=== PATIENT | female | born 1955 | race Caucasian/White ===

== ENCOUNTER 2017-01-10 16:12 | Outpatient (CLI) | payer MEDICAID ==
--- NOTE | 2017-01-11 11:17 | XRAY Report ---
TWO VIEW CHEST: 01/10/2017 CLINICAL INDICATION: Rhonchi, cough, smoking history. FINDINGS: Frontal and lateral views of the chest demonstrate a normal cardiac silhouette. The lungs are clear. No effusion or pneumothorax is present. IMPRESSION: NORMAL CHEST. JOB #: [id number] EXT JOB #:[id number]
== END 2017-01-10 16:13 | disposition home or self-care (01) ==
LOC: DI 16:12
PROVIDERS: ATTEND Physician Assistant
DX: R09.89 Other specified symptoms and signs involving the circulatory and respiratory systems (principal); Z87.891 Personal history of nicotine dependence
CPT/HCPCS: 71020

== ENCOUNTER 2017-02-15 07:37 | Outpatient (CLI) | payer MEDICAID ==
[2017-02-15 13:35] LABS: BASOPHILS # (AUTO) 0.1 10^3/uL (0.0-0.1); BASOPHILS % (AUTO) 1.2 %; EOSINOPHILS % (AUTO) 0.2 %; HCT - HEMATOCRIT 38.8 % (37.0-47.0); HGB - HEMOGLOBIN 13.1 g/dL (12.0-16.0); LYMPHOCYTES % (AUTO) 34.5 %; MEAN CORPUSCULAR HEMOGLOBIN 33.1 pg (27.0-31.0); MEAN CORPUSCULAR HGB CONC 33.9 g/dL (32.0-36.0); MEAN CORPUSCULAR VOLUME 97.7 fL (81.0-99.0); MEAN PLATELET VOLUME 10.7 fL (7.9-10.8); MONOCYTES # (AUTO) 0.6 10^3/uL (0.0-1.0); MONOCYTES % (AUTO) 7.3 %; NEUTROPHILS % (AUTO) 56.8 %; RED BLOOD COUNT 3.97 10^6/uL (4.20-5.40); RED CELL DISTRIBUTION WIDTH 13.3 % (12.0-15.0); UNCORRECTED WHITE BLOOD COUNT 8.8 x10^3/uL; WHITE BLOOD COUNT 8.8 x10^3/uL (4.8-10.8)
[2017-02-15 13:42] LABS: ALBUMIN/GLOBULIN RATIO 1.2 (1.0-2.2); BILIRUBIN,TOTAL 0.5 mg/dL (0.2-1.0); BUN - BLOOD UREA NITROGEN 25 mg/dL (6-20); CALCIUM 9.3 mg/dL (8.5-10.3); CARBON DIOXIDE - CO2 24 mmol/L (21-32); CHLORIDE 105 mmol/L (101-111); CHOL/HDL RATIO 3.6 (<4.4); CHOLESTEROL 239 mg/dL; GFR - MDRD 56 (>89); GLUCOSE 174 mg/dL (70-100); HDL CHOLESTEROL 66 mg/dL; POTASSIUM 4.5 mmol/L (3.5-5.0); SODIUM 137 mmol/L (135-145); TOTAL PROTEIN 7.4 g/dL (6.7-8.2); TRIGLYCERIDES 190 mg/dL; VLDL CHOLESTEROL 38 mg/dL
== END 2017-02-15 07:38 | disposition home or self-care (01) ==
LOC: LAB.N 07:37
PROVIDERS: ATTEND Physician Assistant
DX: E78.5 Hyperlipidemia, unspecified (principal); E11.9 Type 2 diabetes mellitus without complications; I10 Essential (primary) hypertension
CPT/HCPCS: 36415; 80053; 80061; 84443; 85025

== ENCOUNTER 2017-04-03 21:16 | Outpatient (CLI) | payer MEDICAID ==
[2017-04-03 19:15] LABS: CALCIUM 9.4 mg/dL (8.5-10.3); CREATININE 0.9 mg/dL (0.4-1.0); POTASSIUM 4.4 mmol/L (3.5-5.0)
[2017-04-03 19:27] LABS: HEMOGLOBIN A1C 0.79 g/dL
== END 2017-04-03 21:17 | disposition home or self-care (01) ==
LOC: LAB.N 21:16
PROVIDERS: ATTEND Family Medicine
DX: E11.9 Type 2 diabetes mellitus without complications (principal)
CPT/HCPCS: 36415; 80048; 83036

== ENCOUNTER 2018-07-29 20:19 | Outpatient (CLI) | payer SELFPAY ==
[2018-07-29 12:43] LABS: BASOPHILS # (AUTO) 0.2 10^3/uL (0.0-0.1); BASOPHILS % (AUTO) 1.5 %; EOSINOPHILS % (AUTO) 0.1 %; HGB - HEMOGLOBIN 13.6 g/dL (12.0-16.0); LYMPHOCYTES # (AUTO) 2.7 10^3/uL (1.5-3.5); LYMPHOCYTES % (AUTO) 25.8 %; MEAN CORPUSCULAR HEMOGLOBIN 32.4 pg (27.0-31.0); MEAN CORPUSCULAR HGB CONC 33.9 g/dL (32.0-36.0); MEAN CORPUSCULAR VOLUME 95.8 fL (81.0-99.0); MEAN PLATELET VOLUME 11.8 fL (7.9-10.8); MONOCYTES # (AUTO) 0.6 10^3/uL (0.0-1.0); MONOCYTES % (AUTO) 6.1 %; NEUTROPHILS # (AUTO) 6.9 10^3/uL (1.5-6.6); NEUTROPHILS % (AUTO) 66.5 %; PLT - PLATELET COUNT 183 10^3/uL (130-450); RED BLOOD COUNT 4.18 10^6/uL (4.20-5.40); RED CELL DISTRIBUTION WIDTH 13.4 % (12.0-15.0); WHITE BLOOD COUNT 10.4 x10^3/uL (4.8-10.8)
[2018-07-29 13:50] LABS: ALBUMIN 4.1 g/dL (3.2-5.5); ALBUMIN/GLOBULIN RATIO 1.1 (1.0-2.2); ALKALINE PHOSPHATASE 48 IU/L (42-121); ALT ALANINE AMINOTRANSFERASE 24 IU/L (10-60); AST ASPARTATE AMINOTRANSFERASE 24 IU/L (10-42); BILIRUBIN,TOTAL 0.9 mg/dL (0.2-1.0); BUN - BLOOD UREA NITROGEN 26 mg/dL (6-20); CALCIUM 9.3 mg/dL (8.5-10.3); CARBON DIOXIDE - CO2 23 mmol/L (21-32); CHLORIDE 104 mmol/L (101-111); CHOL/HDL RATIO 2.7 (<4.4); CHOLESTEROL 228 mg/dL; GFR - MDRD 56 (>89); GLUCOSE 137 mg/dL (70-100); HDL CHOLESTEROL 85 mg/dL; LDL CHOLESTEROL,CALCULATED 118 mg/dL; LDL/HDL RATIO 1.4 (<4.4); SODIUM 135 mmol/L (135-145); TOTAL PROTEIN 7.8 g/dL (6.7-8.2); VLDL CHOLESTEROL 25 mg/dL
[2018-07-29 15:22] LABS: HB2 TOTAL 14.2 g/dL; HEMOGLOBIN A1C 0.7 g/dL; HEMOGLOBIN A1C % 6.7 % (4.6-6.2)
== END 2018-07-29 23:59 | disposition home or self-care (01) ==
LOC: LAB.N 20:19
PROVIDERS: ATTEND Family Medicine
DX: E78.5 Hyperlipidemia, unspecified (principal); E11.9 Type 2 diabetes mellitus without complications; I10 Essential (primary) hypertension
CPT/HCPCS: 36415; 80053; 80061; 83036; 83721; 85025

== ENCOUNTER → 2020-08-02 | Outpatient (CLI) | payer MEDICAID ==
--- NOTE | 2020-08-02 13:51 | XRAY Report ---
PROCEDURE: Shoulder 3 View RT INDICATIONS: R SHOULDER PX TECHNIQUE: 4 views of the shoulder were acquired. COMPARISON: None. FINDINGS: Bones: No fractures or dislocations. There are degenerative changes of the acromioclavicular joint which are mild. No narrowing of the acromiohumeral interval. No suspicious bony lesions. Visualized ribs appear intact. Soft tissues: No suspicious soft tissue calcifications. IMPRESSION: 1. No acute abnormality. 2. Degenerative changes of the acromioclavicular joint. Reviewed by: Antonino Anaya on 08/02/2020 1:49 PM [facility] Approved by: Antonino Anaya on 08/02/2020 1:49 PM [facility] Station ID: [id number]
== END ==
LOC: DI.N 08:01
PROVIDERS: ATTEND Orthopaedic Surgery
DX: M19.011 Primary osteoarthritis, right shoulder (principal)

== ENCOUNTER 2020-12-27 10:23 | Outpatient (CLI) | payer MEDICARE, MEDICAID ==
[2020-12-27 15:21] LABS: BASOPHILS % (AUTO) 0.5 %; EOSINOPHILS % (AUTO) 0.6 %; HCT - HEMATOCRIT 43.5 % (37.0-47.0); HGB - HEMOGLOBIN 14.3 g/dL (12.0-16.0); LYMPHOCYTES # (AUTO) 2.6 10^3/uL (1.5-3.5); LYMPHOCYTES % (AUTO) 38.8 %; MEAN CORPUSCULAR HEMOGLOBIN 32.7 pg (27.0-31.0); MEAN CORPUSCULAR HGB CONC 32.9 g/dL (32.0-36.0); MEAN CORPUSCULAR VOLUME 99.5 fL (81.0-99.0); MONOCYTES # (AUTO) 0.5 10^3/uL (0.0-1.0); MONOCYTES % (AUTO) 7.5 %; NEUTROPHILS # (AUTO) 3.5 10^3/uL (1.5-6.6); NEUTROPHILS % (AUTO) 52.4 %; PLT - PLATELET COUNT 165 10^3/uL (130-450); RED BLOOD COUNT 4.37 10^6/uL (4.20-5.40); RED CELL DISTRIBUTION WIDTH 12.3 % (12.0-15.0); WHITE BLOOD COUNT 6.6 x10^3/uL (4.8-10.8)
[2020-12-27 15:42] LABS: ALBUMIN 4.3 g/dL (3.2-5.5); ALBUMIN/GLOBULIN RATIO 1.2 (1.0-2.2); ALKALINE PHOSPHATASE 50 IU/L (42-121); ALT ALANINE AMINOTRANSFERASE 28 IU/L (10-60); AST ASPARTATE AMINOTRANSFERASE 25 IU/L (10-42); BILIRUBIN,TOTAL 0.6 mg/dL (0.2-1.0); BUN - BLOOD UREA NITROGEN 28 mg/dL (6-20); CALCIUM 9.5 mg/dL (8.5-10.3); CARBON DIOXIDE - CO2 27 mmol/L (21-32); CHLORIDE 101 mmol/L (101-111); CHOL/HDL RATIO 3.4 (<4.4); CHOLESTEROL 269 mg/dL; CREATININE 1.1 mg/dL (0.4-1.0); GFR - MDRD 50 (>89); GLUCOSE 164 mg/dL (70-100); HDL CHOLESTEROL 79 mg/dL; LDL CHOLESTEROL,CALCULATED 133 mg/dL; LDL/HDL RATIO 1.7 (<4.4); POTASSIUM 4.6 mmol/L (3.5-5.0); SODIUM 137 mmol/L (135-145); TOTAL PROTEIN 7.9 g/dL (6.7-8.2); TRIGLYCERIDES 284 mg/dL; VLDL CHOLESTEROL 57 mg/dL
[2020-12-27 20:19] LABS: ESTIMATED AVERAGE GLUCOSE 154 mg/dL (70-100)
== END 2020-12-27 10:24 | disposition home or self-care (01) ==
LOC: LAB.S 10:23
PROVIDERS: ATTEND Internal Medicine
DX: I10 Essential (primary) hypertension (principal); E11.9 Type 2 diabetes mellitus without complications
CPT/HCPCS: 36415; 80053; 80061; 83036; 83721; 85025

== ENCOUNTER 2021-07-27 14:58 | Outpatient (CLI) | payer MEDICARE, MEDICAID ==
--- NOTE | 2021-07-28 07:23 | Mammography Report ---
BILATERAL DIGITAL SCREENING MAMMOGRAM 3D/2D WITH EXAGGERATED CC: 07/27/2021 CLINICAL: Routine screening. Comparison is made to exam dated: 12/17/2013 mammogram - [facility]. The tissue of both breasts is extremely dense, which lowers the sensitivity of mammography. There are benign calcifications in both breasts. No significant masses, calcifications, or other findings are seen in either breast. There has been no significant interval change. IMPRESSION: BENIGN There is no mammographic evidence of malignancy. A 1 year screening mammogram is recommended. This exam was interpreted at Station ID: [id number]. NOTE: For mammograms, a report in lay terms will be sent to the patient. Approximately 15% of breast malignancies will not be visualized mammographically. In the management of a palpable breast mass, a negative mammogram must not discourage biopsy of a clinically suspicious lesion. Electronically Signed By: Evgeny Shepherd M.D. ddp/penrad:07/27/2021 17:01:11 ACR BI-RADS Category 2: Benign Finding(s) 3342F PARENCHYMAL PATTERN: (VD) - The breast(s) demonstrate(s) extremely dense parenchyma, limiting the sen sitivity of mammography. BI-RADS CATEGORY: (2) - 2 RECOMMENDATION: (ANNUAL) - Recommend routine annual screening mammography. [id number] 1 year screening LATERALITY: (B)
== END 2021-07-27 14:59 | disposition home or self-care (01) ==
LOC: DI.S 14:58
PROVIDERS: ATTEND Internal Medicine
DX: Z12.31 Encounter for screening mammogram for malignant neoplasm of breast (principal)

== ENCOUNTER 2021-09-19 09:35 | Outpatient (CLI) | payer MEDICARE, MEDICAID ==
[2021-09-19 14:57] LABS: BASOPHILS # (AUTO) 0.1 10^3/uL (0.0-0.1); BASOPHILS % (AUTO) 0.6 %; EOSINOPHILS # (AUTO) 0.1 10^3/uL (0.0-0.7); EOSINOPHILS % (AUTO) 0.8 %; HCT - HEMATOCRIT 39.4 % (37.0-47.0); HGB - HEMOGLOBIN 13.1 g/dL (12.0-16.0); LYMPHOCYTES # (AUTO) 2.4 10^3/uL (1.5-3.5); LYMPHOCYTES % (AUTO) 26.4 %; MEAN CORPUSCULAR HEMOGLOBIN 32.5 pg (27.0-31.0); MEAN CORPUSCULAR HGB CONC 33.2 g/dL (32.0-36.0); MEAN CORPUSCULAR VOLUME 97.8 fL (81.0-99.0); MEAN PLATELET VOLUME 12.8 fL (7.9-10.8); MONOCYTES # (AUTO) 0.6 10^3/uL (0.0-1.0); MONOCYTES % (AUTO) 7.1 %; NEUTROPHILS # (AUTO) 5.9 10^3/uL (1.5-6.6); NEUTROPHILS % (AUTO) 64.8 %; PLT - PLATELET COUNT 174 10^3/uL (130-450); RED BLOOD COUNT 4.03 10^6/uL (4.20-5.40); RED CELL DISTRIBUTION WIDTH 12.3 % (12.0-15.0); WHITE BLOOD COUNT 9.1 x10^3/uL (4.8-10.8)
[2021-09-19 15:41] LABS: ALBUMIN 3.9 g/dL (3.2-5.5); ALBUMIN/GLOBULIN RATIO 1.1 (1.0-2.2); ALKALINE PHOSPHATASE 43 IU/L (42-121); ALT ALANINE AMINOTRANSFERASE 26 IU/L (10-60); AST ASPARTATE AMINOTRANSFERASE 22 IU/L (10-42); BILIRUBIN,TOTAL 0.8 mg/dL (0.2-1.0); BUN - BLOOD UREA NITROGEN 18 mg/dL (6-20); CALCIUM 9.5 mg/dL (8.5-10.3); CARBON DIOXIDE - CO2 28 mmol/L (21-32); CHLORIDE 98 mmol/L (101-111); CHOL/HDL RATIO 3.3 (<4.4); CHOLESTEROL 253 mg/dL; GFR - MDRD 55 (>89); GLUCOSE 163 mg/dL (70-100); HDL CHOLESTEROL 76 mg/dL; LDL CHOLESTEROL,CALCULATED 128 mg/dL; LDL/HDL RATIO 1.7 (<4.4); POTASSIUM 4.5 mmol/L (3.5-5.0); SODIUM 137 mmol/L (135-145); TOTAL PROTEIN 7.4 g/dL (6.7-8.2); TRIGLYCERIDES 244 mg/dL; VLDL CHOLESTEROL 49 mg/dL
[2021-09-19 16:43] LABS: ESTIMATED AVERAGE GLUCOSE 160 mg/dL (70-100); HEMOGLOBIN A1c% 7.2 % (4.27-6.07)
== END 2021-09-19 09:36 | disposition home or self-care (01) ==
LOC: LAB.S 09:35
PROVIDERS: ATTEND Internal Medicine
DX: E11.9 Type 2 diabetes mellitus without complications (principal)
CPT/HCPCS: 36415; 80053; 80061; 83036; 83721; 85025

== ENCOUNTER 2022-04-19 08:00 | Outpatient (CLI) | payer MEDICARE, MEDICAID ==
[2022-04-19 16:28] LABS: POTASSIUM 4.9 mmol/L (3.5-5.0)
[2022-04-19 20:42] LABS: ESTIMATED AVERAGE GLUCOSE 151 mg/dL (70-100); HEMOGLOBIN A1c% 6.9 % (4.27-6.07)
== END 2022-04-19 23:59 | disposition home or self-care (01) ==
LOC: LAB.R 08:00
PROVIDERS: ATTEND Internal Medicine
DX: E11.9 Type 2 diabetes mellitus without complications (principal); Z79.899 Other long term (current) drug therapy
CPT/HCPCS: 80048; 82607; 83036

== ENCOUNTER 2022-05-25 09:28 | Outpatient (CLI) | payer MEDICARE, MEDICAID ==
--- NOTE | 2022-05-25 16:42 | Mammography Report ---
UNILATERAL RIGHT DIGITAL DIAGNOSTIC MAMMOGRAM 3D/2D: 05/25/2022 CLINICAL: Diffuse right breast pain. Comparison is made to exams dated: 12/17/2013 mammogram and 07/27/2021 mammogram - [facility]. The right breast is extremely dense, which lowers the sensitivity of mammography (category d />75% gl andular tissue). No significant masses, calcifications, or other findings are seen in the breast. Specifically, no fi nding to explain the patient's chronic diffuse lateral breast pain. IMPRESSION: NEGATIVE There is no abnormality seen in the right breast to correspond with the pain in the lateral aspect. This pain is reportedly chronic, due to remote trauma (two years prior), and the mammograms have been stable since that time. There is no mammographic evidence of malignancy. Continuing with annual mammogram screening schedule is recommended. Future imaging is recommended as follows: 07/28/2022 screening mammogram. Findings and recommendations were conveyed to the patient at time of exam. Based on the Tyrer Cuzick model (a risk assessment model) the patients lifetime risk is 13.8% and he r 10 year risk is 7.1%. According to the ACR, ACS, and NCCN guidelines, an annual breast MRI exam rodrigo ng with mammogram is recommended if the patients lifetime risk is 20% or greater. This exam was interpreted at Station ID: [id number]. NOTE: For mammograms, a report in lay terms will be sent to the patient. Approximately 15% of breast malignancies will not be visualized mammographically. In the management of a palpable breast mass, a negative mammogram must not discourage biopsy of a clinically suspicious lesion. Electronically Signed By: Mahogany yao/:05/25/2022 10:59:15 ACR BI-RADS Category 1: Negative 3341F PARENCHYMAL PATTERN: (VD) - The breast(s) demonstrate(s) extremely dense parenchyma, limiting the sen sitivity of mammography. BI-RADS CATEGORY: (1) - 1 Mammogram [id number] return to screening LATERALITY: (B)
== END 2022-05-25 09:29 | disposition home or self-care (01) ==
LOC: DI 09:28
PROVIDERS: ATTEND Internal Medicine
DX: N64.4 Mastodynia (principal)

== ENCOUNTER 2023-01-09 06:56 | Outpatient (CLI) | payer MEDICARE, MEDICAID ==
--- NOTE | 2023-01-09 12:24 | Ultrasound Report ---
PROCEDURE: Abdomen Complete INDICATIONS: 67-year-old female with hepatitis C TECHNIQUE: Real-time scanning was performed of the abdominal and retroperitoneal organs, with image documentatio n. COMPARISON: None. FINDINGS: Liver: Liver is normal in size. No evidence of scalloping of the capsule. Generalized increased echo genicity without focal mass lesion or intrahepatic bile duct dilatation Gallbladder: Unremarkable. Biliary ducts: Intrahepatic bile ducts are non-dilated. Extrahepatic bile duct caliber measures 4 m m. Normal is 6-7 mm or less in diameter, or 10 mm or less post-cholecystectomy. Pancreas: Visualized portions of the pancreas are sonographically normal. Spleen: Spleen is normal in size and homogeneous in echotexture. Kidneys: Kidneys are normal in size and echotexture. Right kidney measures 9.0 cm long; left kidney measures 9.2 cm long. No hydronephrosis or nephrolithiasis. No solid masses. There is a focal righ t renal subcentimeter calculus noted. No hydronephrosis. Aorta: Visualized aorta is normal in caliber at less than 3 cm. Iliacs: Proximal common iliac arteries are normal in caliber at less than 2.5 cm. IVC: Intrahepatic inferior vena cava is patent. Miscellaneous: No free abdominal fluid. IMPRESSION: Hepatic fatty infiltration without focal mass lesion. Small right renal nonobstructive calculus Reviewed by: Emmanuel Moran MD on 01/09/2023 11:23 AM [facility] Approved by: Emmanuel Moran MD on 01/09/2023 11:23 AM [facility] Station ID: [id number]
== END 2023-01-09 06:57 | disposition home or self-care (01) ==
LOC: DI 06:56
PROVIDERS: ATTEND Internal Medicine Gastroenterology
DX: B19.20 Unspecified viral hepatitis C without hepatic coma (principal); K76.0 Fatty (change of) liver, not elsewhere classified; N20.0 Calculus of kidney

== ENCOUNTER 2023-07-17 22:33 | Emergency (ER) | payer MEDICARE, MEDICAID ==
[2023-07-17] MEDS ORDERED: DEXAMETHASONE 10 MG/ML VIAL IV STA (23:04)
[2023-07-17] MEDS ORDERED: FAMOTIDINE 20 MG/2 ML VIAL IVP STA (23:04)
[2023-07-17] MEDS ORDERED: diphenhydrAMINE INJ 50 MG/ML VIAL IVP STA (23:04)
[2023-07-17] MEDS ORDERED: EPINEPHrine 1 MG/ML AMP IM STA (23:04)
[2023-07-17] MEDS ORDERED: TRANEXAMIC ACID 1,000 MG in SODIUM CHLORIDE 0.9% 100ML 100 ML IV STA (23:08)
[2023-07-17 23:19] LABS: BASOPHILS # (AUTO) 0.1 10^3/uL (0.0-0.1); BASOPHILS % (AUTO) 0.5 %; EOSINOPHILS # (AUTO) 0.1 10^3/uL (0.0-0.7); EOSINOPHILS % (AUTO) 1.2 %; HCT - HEMATOCRIT 39.1 % (37.0-47.0); HGB - HEMOGLOBIN 13.8 g/dL (12.0-16.0); LYMPHOCYTES # (AUTO) 4.1 10^3/uL (1.5-3.5); MEAN CORPUSCULAR HEMOGLOBIN 33.1 pg (27.0-31.0); MEAN CORPUSCULAR HGB CONC 35.3 g/dL (32.0-36.0); MEAN CORPUSCULAR VOLUME 93.8 fL (81.0-99.0); MONOCYTES # (AUTO) 0.9 10^3/uL (0.0-1.0); MONOCYTES % (AUTO) 7.9 %; NEUTROPHILS # (AUTO) 6.4 10^3/uL (1.5-6.6); PLT - PLATELET COUNT 206 10^3/uL (130-450); RED BLOOD COUNT 4.17 10^6/uL (4.20-5.40); RED CELL DISTRIBUTION WIDTH 12.1 % (12.0-15.0); WHITE BLOOD COUNT 11.6 x10^3/uL (4.8-10.8)
[2023-07-17] MEDS ORDERED: SODIUM CHLORIDE FOR INHALATION 5 ML NEB INH STA (23:31)
[2023-07-17] MEDS ORDERED: RACEPINEPHRINE 2.25% NEB INH STA (23:31)
[2023-07-17] MEDS ORDERED: TRANEXAMIC ACID 1,000 MG/10 ML VIAL ONE (23:45)
[2023-07-17 23:50] LABS: ALBUMIN 4.5 g/dL (3.2-5.5); ETOH - ETHANOL < 10.0 mg/dL; LIPASE 145 U/L (11-82)
[2023-07-17 23:52] VITALS: O2SAT 97
[2023-07-18 00:09] LABS: ALBUMIN/GLOBULIN RATIO 1.5 (1.0-2.2); ALKALINE PHOSPHATASE 49 IU/L (42-121); ALT ALANINE AMINOTRANSFERASE 13 IU/L (10-60); AST ASPARTATE AMINOTRANSFERASE 18 IU/L (10-42); BILIRUBIN,TOTAL 0.6 mg/dL (0.2-1.0); BUN - BLOOD UREA NITROGEN 23 mg/dL (6-20); CALCIUM 9.9 mg/dL (8.5-10.3); CARBON DIOXIDE - CO2 23 mmol/L (21-32); CHLORIDE 87 mmol/L (101-111); CREATININE 1.1 mg/dL (0.6-1.3); GFR - MDRD 50 (>89); GLUCOSE 119 mg/dL (74-104); POTASSIUM 4.5 mmol/L (3.5-4.5); SODIUM 125 mmol/L (135-145); TOTAL PROTEIN 7.6 g/dL (6.4-8.9)
--- NOTE | 2023-07-18 01:53 | ED Physician Documentation ---
History of Present Illness - Stated complaint Stated Complaint: SWOLLEN TONGUE - Chief complaint Chief Complaint: Heent - History obtained from History obtained from: Patient - Additonal information Additional information: The pt comes to the ED with CC of L tongue swelling. She states she caught a sharp edge of her tooth with her tongue about 4 hours ago, and it started to swell. The pt states the swelling has involved just the L side of her tongue, and does not seem to be affecting her throat or any other part of her mouth. No rash or itching. No history of this previously. It still seems to be getting gradually worse, so she decided to come in. She does take lisinopril. No recent dose changes. PD PAST MEDICAL HISTORY - Past Medical History Cardiovascular: Hypertension, High cholesterol Respiratory: None Endocrine/Autoimmune: Type 2 diabetes GI: None : None Psych: Anxiety, Panic attacks Musculoskeletal: None Derm: None - Past Surgical History General: Colonoscopy - Present Medications Home Medications: Ambulatory Orders Medication Instructions Recorded Confirmed Imipramine [Tofranil] 50 mg PO QPM 03/09/14 03/09/14 Lisinopril [Zestril] 40 mg PO DAILY 03/09/14 03/09/14 Metformin HCl [Metformin HCl ER] 500 mg PO BID 03/09/14 03/09/14 Sheldon-3/Dha/Epa/Fish Oil [Fish Oil] 500 mg PO DAILY 03/09/14 03/09/14 Propranolol [Inderal] 20 mg PO DAILY 03/09/14 03/09/14 diphenhydrAMINE [Benadryl] 25 mg PO Q4-6H PRN #15 cap 07/18/23 predniSONE [Deltasone] 60 mg PO DAILY 3 Days #9 tablet 07/18/23 - Allergies Allergies/Adverse Reactions: Allergies Allergy/AdvReac Type Severity Reaction Status Date / Time Sulfa (Sulfonamide Allergy Unknown Verified 07/17/23 22:54 Antibiotics) lisinopril AdvReac Anaphylaxis Verified 07/18/23 02:11 Gddvuit-ZVX-KuG Reductase AdvReac Unknown Verified 07/17/23 22:54 Inhibitor [Ehbwekv-Ltt-Icf Reductase Inhibitor] venom-honey bee AdvReac Unknown Verified 07/17/23 22:54 [bee venom (honey bee)] PD ED PE NORMAL - Vitals Vital signs reviewed: Yes - General General: Alert and oriented X 3, No acute distress, Well developed/nourished - HEENT HEENT: Atraumatic, PERRL, EOMI, Moist mucous membranes, Other (moderate swelling of L tongue. No posterior pharyngeal or uvular swelling. No lesions. R tongue does not appear enlarged. Handling secretions well.) - Neck Neck: Supple, no meningeal sign, Other (No stridor) - Cardiac Cardiac: RRR, No murmur, Strong equal pulses - Respiratory Respiratory: No respiratory distress, Clear bilaterally - Abdomen Abdomen: Normal bowel sounds, Soft, Non tender, Non distended - Derm Derm: Warm and dry - Extremities Extremities: No deformity - Neuro Neuro: Alert and oriented X 3 - Psych Psych: Normal mood, Normal affect Results - Vitals Vitals: Oxygen O2 Source Room air - Labs Labs: Laboratory Tests 07/17/23 07/17/23 23:14 23:14 WBC 11.6 H RBC 4.17 L Hgb 13.8 Hct 39.1 MCV 93.8 MCH 33.1 H MCHC 35.3 RDW 12.1 Plt Count 206 MPV 11.0 H Neut # (Auto) 6.4 Lymph # (Auto) 4.1 H [place] # (Auto) 0.9 Eos # (Auto) 0.1 Baso # (Auto) 0.1 Absolute Nucleated RBC 0.00 Nucleated RBC % 0.0 Sodium 125 L Potassium 4.5 Chloride 87 L Carbon Dioxide 23 Anion Gap 15.0 H BUN 23 H Creatinine 1.1 Estimated GFR (MDRD) 50 L Glucose 119 H Calcium 9.9 Total Bilirubin 0.6 AST 18 ALT 13 Alkaline Phosphatase 49 Total Protein 7.6 Albumin 4.5 Globulin 3.1 Albumin/Globulin Ratio 1.5 Lipase 145 H Ethyl Alcohol < 10.0 PD Medical Decision Making - ED course Complexity details: reviewed results, re-evaluated patient, considered differential, d/w patient, d/w family ED course: The pt was evaluated immediately upon arrival in the ED. IV was started and pt was given Decadron, Benadryl, Pepcid, TXA, and IM epi. She began to improve, and after some hours of observation in the ED, was markedly better. I d/w pt that it is very important that she stop the lisinopril and call her doctor first thing in the morning to discuss a new regimen for her BP. We have discussed immediate return to the ED, should her symptoms begin to recur. Departure - Departure Disposition: 01 Home, Self Care Clinical Impression: Angioedema Qualifiers: Encounter type: initial encounter Qualified Code(s): T78.3XXA - Angioneurotic edema, initial encounter Condition: Stable Instructions: ED Angioedema Prescriptions: diphenhydrAMINE [Benadryl] 25 mg PO Q4-6H PRN #15 cap PRN Reason: Swelling predniSONE [Deltasone] 60 mg PO DAILY 3 Days #9 tablet Comments: Your tongue swelling has almost completely resolved with treatment. You did not have a clear-cut allergic reaction and as such, we must assume that it is your lisinopril that has caused this swelling of your tongue tonight. Because of this, you will need to stop your lisinopril immediately and call your doctors office first thing in the morning. Please let them know that your tongue swelled up and that we think it was the lisinopril and that you need to be seen a soon as possible to reevaluate your blood pressure medication regimen. For now, you may continue to take the propranolol as usual. This is unrelated to lisinopril and will not cause this kind of reaction. I have given you prescriptions for a couple of the medications we gave you tonight and you may pick these up at the [facility] pharmacy in [place] later this morning after you wake up. If you begin to notice that the swelling is coming back, please return to the emergency department immediately. Otherwise, please follow-up with your primary doctor soon as possible. Forms: PCP List Discharge Date/Time: 07/18/23 02:08
[2023-07-18 02:14] VITALS: BP 189/86
== END 2023-07-18 02:08 | disposition home or self-care (01) ==
LOC: ED 22:33
DX: T78.3XXA Angioneurotic edema, initial encounter (principal); I10 Essential (primary) hypertension; E78.00 Pure hypercholesterolemia, unspecified; E11.9 Type 2 diabetes mellitus without complications; Z79.899 Other long term (current) drug therapy; Z79.84 Long term (current) use of oral hypoglycemic drugs
CPT/HCPCS: 36415; 80053; 83690; 85025; 94640; 94664; 96365; 96372; 96375; 99283; G0480; J1200; 80320

== ENCOUNTER 2023-11-29 11:00 | Outpatient (CLI) | payer MEDICARE, MEDICAID ==
--- NOTE | 2023-11-29 19:01 | CT Report ---
PROCEDURE: Chest WO INDICATIONS: SMOKER TECHNIQUE: A CT scan of the chest was performed. Intravenous contrast media was not administered. Images were re corded and evaluated at appropriate window settings. Reformats: axial MIP of the chest, coronal and s agittal. For radiation dose reduction, the following was used: automated exposure control, adjustment of mA and/or kV according to patient size. COMPARISON: None. FINDINGS: Image quality: Diagnostic. Chest wall and lower neck: No thyroid nodule which requires sonographic follow up. No axillary or sup raclavicular adenopathy by size. Lungs and pleura: No consolidation. Mild diffuse interstitial pulmonary fibrosis. Minimal emphysemato us change.. No pleural effusions. No pneumothorax. No suspicious pulmonary nodules which require fol low up. Mediastinum: Heart size is normal. No pericardial effusion. Moderate coronary artery calcifications. No large vessel abnormality. No mediastinal adenopathy by size criteria. Bones: No aggressive osseous abnormality. Upper Abdomen: Unremarkable. IMPRESSION: 1. No findings suspicious for malignancy. 2. Mild interstitial pulmonary fibrosis. 3. Very mild emphysematous change. 4. Moderate coronary artery calcifications. Reviewed by: Tripp Brown MD on 11/29/2023 6:59 PM PDT Approved by: Tripp Brown MD on 11/29/2023 6:59 PM PDT Station ID: [id number]
== END 2023-11-29 11:01 | disposition home or self-care (01) ==
LOC: DI 11:00
PROVIDERS: ATTEND Internal Medicine
DX: Z12.2 Encounter for screening for malignant neoplasm of respiratory organs (principal); J84.10 Pulmonary fibrosis, unspecified; J43.9 Emphysema, unspecified; I25.10 Atherosclerotic heart disease of native coronary artery without angina pectoris

== ENCOUNTER 2023-11-29 11:04 | Outpatient (CLI) | payer MEDICARE, MEDICAID ==
--- NOTE | 2023-11-30 08:45 | Mammography Report ---
BILATERAL DIGITAL SCREENING MAMMOGRAM 3D/2D WITH EXAGGERATED CC: 11/29/2023 CLINICAL: Routine screening. Comparison is made to exams dated: 05/25/2022 mammogram and 07/27/2021 mammogram - [facility]. Both breasts are extremely dense, which lowers the sensitivity of mammography (category d />75% gland ular tissue). No significant masses, calcifications, or other findings are seen in either breast. There has been no significant interval change. IMPRESSION: NEGATIVE There is no mammographic evidence of malignancy. A 1 year screening mammogram is recommended. Based on the Tyrer Cuzick model (a risk assessment model) the patient's lifetime risk is 12.5% and he r 10 year risk is 7.0%. According to the ACR, ACS, and NCCN guidelines, an annual breast MRI exam rodrigo ng with mammogram is recommended if the patient's lifetime risk is 20% or greater. This exam was interpreted at Station ID: [id number]. NOTE: For mammograms, a report in lay terms will be sent to the patient. Approximately 15% of breast malignancies will not be visualized mammographically. In the management of a palpable breast mass, a negative mammogram must not discourage biopsy of a clinically suspicious lesion. Electronically Signed By: Mahogany yao/stone:11/29/2023 17:45:42 letter sent: No_Letter ACR BI-RADS Category 1: Negative 3341F PARENCHYMAL PATTERN: (VD) - The breast(s) demonstrate(s) extremely dense parenchyma, limiting the sen sitivity of mammography. BI-RADS CATEGORY: (1) - 1 RECOMMENDATION: (ANNUAL) - Recommend routine annual screening mammography. [id number] 1 year screening LATERALITY: (B)
== END 2023-11-29 11:05 | disposition home or self-care (01) ==
LOC: DI 11:04
PROVIDERS: ATTEND Internal Medicine
DX: Z12.31 Encounter for screening mammogram for malignant neoplasm of breast (principal); R92.343 Mammographic extreme density, bilateral breasts